=== PATIENT | female | born 1985 | race Caucasian/White ===

== ENCOUNTER 2023-09-06 10:35 | Emergency (ER) | payer OTHER | END 2023-09-06 11:12 | disposition left against medical advice (07) | LOC: JP.ED 10:35 | DX: Z53.21 Procedure and treatment not carried out due to patient leaving prior to being seen by health care provider (principal) ==

== ENCOUNTER 2023-09-06 19:02 | Emergency (ER) | payer OTHER ==
[2023-09-06] MEDS ORDERED: Rabies Immune Globulin/PF (HyperRAB) 300 UNIT/ML 1 ML SDV IM ONE (19:56)
[2023-09-06] MEDS ORDERED: Rabies Vaccine (Avian) 2.5 Unit Inj Kit IM ONE (19:57)
== END 2023-09-06 21:45 | disposition home or self-care (01) ==
LOC: JP.ED 19:02
DX: Z20.3 Contact with and (suspected) exposure to rabies (principal); Z88.0 Allergy status to penicillin; Z88.2 Allergy status to sulfonamides
CPT/HCPCS: 90375; 90471; 90675; 96372; 99282; 99283-25